=== PATIENT | female | born 1945 | race Two or more races ===

== ENCOUNTER 2025-06-03 10:02 | Emergency (ER) | payer OTHER ==
[~2025-06-03] VITALS: Ht 167.6 cm; Wt 60.0 kg
--- NOTE | 2025-06-03 10:43 | ED.PDOC ---
GI ASSESSMENT HPI Comments 80 y/o F, presents to the ED for CC of abdominal pain. Patient states, she has been experiencing intermittent RUQ abdominal pain that radiates to her right flank onset, x3days ago. Patient relays, associated symptoms of nausea and vomiting. Patient comments, that she did go to urgent Care for symptoms however, was told to follow up with the ED as they do not do Cat Scans. Patient denies dysuria, fever, back pain, or urinary frequency. No other associated symptoms, modifiers, recent injuries or sick contacts present at this time. Chief Complaint: Abdominal Pain Time Seen by MD: 10:30 Allergies: Coded Allergies: Terbinafine (Verified Allergy, Severe, 06/03/25) Mode of Arrival: Ambulatory Timing: Days Duration: Intermittent Prehospital treatment: None Quality: None Vomitus: Watery Stool: Normal Severity: Moderate Recent: None Recent Hx of: None Pain Location: RUQ Modifying Factors: Nothing Associated sign and symptoms: Nausea, Vomiting, Abdominal Pain Past Medical History PAST MEDICAL HISTORY: Cancer Surgical History: Hysterectomy PROCESSING LEAD History: Denies all PROCESSING LEAD Hx Family History Family History: Unknown Social History Smoker: Non-Smoker Alcohol: Denies ETOH Use Drugs: Denies Drug Use Lives In: Home Constitutional: denies: chills, diaphoresis, fatigue, fever, malaise, sweats, weakness, others EENTM: denies: blurred vision, double vision, ear bleeding, ear discharge, ear drainage, ear pain, ear ringing, eye pain, eye redness, hearing loss, mouth pain, mouth swelling, nasal discharge, nose bleeding, nose congestion, nose pain, photophobia, tearing, throat pain, throat swelling, voice changes, others Respiratory: denies: cough, hemoptysis, orthopnea, SOB at rest, shortness of breath, SOB with excertion, stridor, wheezing, others Cardiovascular: denies: chest pain, dizzy spells, diaphoresis, Dyspnea on exertion, edema, irregular heart beat, left arm pain, lightheadedness, palpitations, PND, syncope, others Gastrointestinal: reports: abdominal pain, nausea, vomiting; denies: abdomen distended, blood streaked bowels, constipated, diarrhea, dysphagia, difficulty swallowing, hematemesis, melena, poor appetite, poor fluid intake, rectal bleeding, rectal pain, others Genitourinary: denies: abnormal vagina bleeding, burning, dyspareunia, dysuria, flank pain, frequency, hematuria, incontinence, pain, , vagina discharge, urgency, others Neurological: denies: dizziness, fainting, headache, left sided numbness, left sided weakness, numbness, paresthesia, pre-existing deficit, right sided numbness, right sided weakness, seizure, speech problems, tingling, tremors, weakness, others Musculoskeletal: denies: back pain, gout, joint pain, joint swelling, muscle pain, muscle stiffness, neck pain, others Integumetry: denies: bruises, change in color, change in hair/nails, dryness, laceration, lesions, lumps, rash, wounds, others Allergic/Immunocompromised: denies: Difficulty Healing, Frequent Infections, Hives, Itching, others Hematologic/Lymphatic: denies: anemia, blood clots, easy bleeding, easy bruising, swollen glands, others Endocrine: denies: excessive hunger, excessive sweating, excessive thirst, excessive urination, flushing, intolerance to cold, intolerance to heat, unexplained weight gain, unexplained weight loss, others Psychiatric: denies: anxiety, bipolar disorder, depression, hopeless, panic disorder, schizophrenia, sleepless, suicidal, others All Other Systems: Reviewed and Negative Physical Exam General Appearance: Moderate Distress HEENT: Normal ENT Inspection, Pharynx Normal, TMs Normal Neck: Full Range of Motion, Non-Tender, Normal, Normal Inspection Respiratory: Chest Non-Tender, Lungs Clear, No Accessory Muscle Use, No Respiratory Distress, Normal Breath Sounds Cardiovascular: No Edema, No JVD, No Murmur, No Gallop, Normal Peripheral Pulses, Regular Rate/Rhythm Breast Exam: Deferred Gastrointestinal: No Organomegaly, Non Tender, No Pulsatile Mass, Normal Bowel Sounds, Soft Genitalia: Deferred Pelvic: Deferred Rectal: Deferred Extremities: No calf tenderness, Normal capillary refill, Normal inspection, Normal range of motion, Non-tender, No pedal edema Musculoskeletal : Apperance: Normal Neurologic: Alert, senior research scientist II-XII nml as Tested, No Motor Deficits, Normal Affect, Normal Mood, No Sensory Deficits Cerebellar Function: Normal Reflexes: Normal Skin: Dry, Normal Color, Warm Peripheral Pulses: 3+ Radial (R), 3+ Radial (L) Lymphatic: No Adenopathy Was a procedure done? Was a procedure done?: No GI differential Dx Differential Diagnosis: Cholecystitis, Diverticular disease, Esophagitis, Gastritis/PUD, Gastroenteritis, Hepatitis, Pancreatitis, Urinary Obstruction X-Ray, Labs, Meds, VS Vital Signs Date Time Temp Pulse Resp B/P (MAP) Pulse Ox O2 Delivery O2 Flow Rate FiO2 06/03/25 11:13 62 17 99 Room Air 06/03/25 11:13 98.3 62 16 135/61 (85) 99 98.3 06/03/25 10:18 98.1 71 16 133/91 (105) 98 98.1 Lab Test 06/03/25 10:44 06/03/25 10:30 Range/Units White Blood Count 3.7 L 4.4-10.8 10^3/uL Red Blood Count 4.41 4.0-5.20 10^6/uL Hemoglobin 13.3 12.2-16.2 g/dL Hematocrit 39.0 36.0-46.0 % Mean Corpuscular Volume 88.5 80.0-100.0 fL Mean Corpuscular Hemoglobin 30.2 28.0-32.0 pg Mean Corpuscular Hemoglobin Concent 34.1 32.0-36.0 g/dL Red Cell Distribution Width 16.4 H 11.8-14.3 % Platelet Count 230 140-450 10^3/uL Mean Platelet Volume 7.5 6.9-10.8 fL Neutrophils (%) (Auto) 50.7 37.0-80.0 % Lymphocytes (%) (Auto) 29.8 10.0-50.0 % Monocytes (%) (Auto) 10.3 0.0-12.0 % Eosinophils (%) (Auto) 7.2 H 0.0-7.0 % Basophils (%) (Auto) 2.0 0.0-2.0 % Neutrophils # (Auto) 1.9 1.6-8.6 10 ^3/uL Lymphocytes # (Auto) 1.1 0.4-5.4 10 ^3/uL Monocytes # (Auto) 0.4 0-1.3 10 ^3/uL Eosinophils # (Auto) 0.3 0-0.8 10 ^3/uL Basophils # (Auto) 0.1 0-0.2 10 ^3/uL Nucleated Red Blood Cells 0.1 % Sodium Level 137 136-145 mmol/L Potassium Level 3.9 3.5-5.1 mmol/L Chloride Level 99 98-107 mmol/L Carbon Dioxide Level 29 20-31 mmol/L Anion Gap 9 5-15 Blood Urea Nitrogen 17 9-23 mg/dL Creatinine 0.81 0.550-1.02 mg/dL Glomerular Filtration Rate Calc 74 >90 mL/min BUN/Creatinine Ratio 21.0 H 10.0-20.0 Serum Glucose 121 H 74-106 mg/dL Calcium Level 10.1 8.7-10.4 mg/dL Urine Color Light-yellow Yellow Urine Clarity Clear Clear Urine pH 6.0 5.0-9.0 Urine Specific [place] 1.006 1.001-1.035 Urine Protein Negative Negative Urine Ketones Negative Negative Urine Blood Negative Negative /uL Urine Nitrite Negative Negative Urine Bilirubin Negative Negative Urine Urobilinogen Normal Negative mg/dL Urine Leukocyte Esterase Negative Negative /uL Urine RBC <1 0 - 4 /hpf Urine Microscopic WBC 0-5 /HPF Urine Squamous Epithelial Cells None seen <5 /hpf Urine Bacteria None seen None Seen /hpf Urine Glucose Normal Normal mg/dL Patient alert. Complaining of the abdominal discomfort. Vitals stable. Possible gallstones. Blood pressure slightly high. Ultrasound does reveal gallstones. Abdomen on examination is benign. States that she isn't having any pain. Explained to the family. Insists on going home. Was told to follow up with her primary care physician. Told to come back if there is any problem. [place] [id number] Ph: [phone] DIAGNOSTIC IMAGING Diagnostic Imaging Report : [id number] Signed PATIENT: PATRICIA MELCHOR ACCT: [id number] UNIT: [id number] : 1945 LOC: ER ROOM / BED: / AGE / SEX: 80 / F ADM STATUS: REG ER SERVICE [id number] ORDERING PHYSICIAN: JUSTINA GREWAL MD PROCEDURE(s): GBUS - GALLBLADDER REASON: gallstone ORDER NUMBER(s): [id number], ACCESSION NUMBER(s): [id number] ABDOMINAL ULTRASOUND CLINICAL HISTORY: gallstone TECHNIQUE: Multiple grayscale and color Doppler ultrasound images were obtained of the abdomen. WID: COMPARISON: None FINDINGS: Liver and Biliary System: Homogeneous echotexture, normal size measuring 12 cm. No focal hepatic observations. No intrahepatic bile duct dilatation. The common duct measures 1 cm at the jami hepatis. The gallbladder contains cholelithiasis without wall thickening. Sonographic domingo's sign is negative.. Pancreas: Visualized portions are unremarkable. Kidneys: The right kidney is 9.5 cm . No hydronephrosis, increased echogenicity, shadowing stone, or focal lesion. IMPRESSION: Dilated common bile duct. No choledocholithiasis in the visualized portions of the common bile duct. If there is clinical concern for biliary obstruction, MRCP could be pursued for further evaluation. Cholelithiasis without acute cholecystitis ATED BY: MILE RUIZ MD DICTATED DATE/TIME: 06/03/25 1302 SIGNED BY: MILE RUIZ MD SIGNED DATE/TIME: 06/03/25 1302 CC: Time of 1ST Reevaluation: 11:00 Reevaluation 1ST: Improved Time of 2ND Reevaluation: 13:44 Reevaluation 2ND: Improved Patient Education/Counseling: Diagnosis, Treatment Family Education/Counseling: No Family Present SEPSIS Sepsis Screen Date sepsis recognized/suspect: Jun 03, 2025 Time Sepsis recognized/suspect: 1002 Recent Procedure: No On Antibiotic Therapy: No Respiratory Rate >20: No Heart Rate >90: No Temp<36 C (96.8 F) or >38.3 C: No SBP <90 or MAP <65 mmHG: No New Acute Mental Status Change: No Is the patient on CPAP, BIPAP,: No Physician Orders Electrocardigram (06/03/25 10:24) Gallbladder (06/03/25 10:33) Vital Signs Date Time Temp Pulse Resp B/P (MAP) Pulse Ox O2 Delivery O2 Flow Rate FiO2 06/03/25 11:13 62 17 99 Room Air 06/03/25 11:13 98.3 62 16 135/61 (85) 99 98.3 06/03/25 10:18 98.1 71 16 133/91 (105) 98 98.1 Laboratory Tests Test 06/03/25 10:44 White Blood Count 3.7 10^3/uL (4.4-10.8) L Departure 1 Departure Time of Disposition: 12:05 Impression: Primary Impression: Acute abdominal pain Additional Impression: Gallstones Disposition: HOME / SELF CARE / HOMELESS Condition: Good Discharged With: Self Critical Care Note Critical Care Time?: No Stability Stability form required: No Heart Score Heart Score: Heart Score Response (Comments) Value History N/A 0 EKG N/A 0 Age N/A 0 Risk Factors N/A 0 Troponin N/A 0 Total 0 I personally scribed for JUSTINA GREWAL MD ([email or web address]) on 06/03/25 at 10:43. Electronically submitted by Tracie Lott ([email or web address]). I personally scribed for JUSTINA GREWAL MD ([email or web address]) on 06/03/25 at 13:27. Electronically submitted by Tracie Lott [email or web address]). JUSTINA GREWAL MD Jun 03, 2025 10:43
[2025-06-03 10:59] LABS: Hematocrit 39.0 % (36.0-46.0); Hemoglobin 13.3 g/dL (12.2-16.2); Mean Corpuscular Hemoglobin 30.2 pg (28.0-32.0); Mean Corpuscular Volume 88.5 fL (80.0-100.0); Nucleated Red Blood Cells % 0.1 %
[2025-06-03 11:08] LABS: Chloride 99 mmol/L (98-107); Potassium 3.9 mmol/L (3.5-5.1); Sodium 137 mmol/L (136-145)
[2025-06-03 11:09] LABS: Anion Gap 9 (5-15); Carbon Dioxide 29 mmol/L (20-31)
[2025-06-03 11:10] LABS: Calcium 10.1 mg/dL (8.7-10.4)
[2025-06-03 11:14] LABS: BUN/Creatinine Ratio 21.0 (10.0-20.0); Blood Urea Nitrogen 17 mg/dL (9-23)
[2025-06-03 11:16] LABS: Glucose 121 mg/dL (74-106)
[2025-06-03 11:22] LABS: Urine Protein, UAD Negative (Negative)
--- NOTE | 2025-06-03 13:04 | DVH ---
ABDOMINAL ULTRASOUND CLINICAL HISTORY: gallstone TECHNIQUE: Multiple grayscale and color Doppler ultrasound images were obtained of the abdomen. WID: COMPARISON: None FINDINGS: Liver and Biliary System: Homogeneous echotexture, normal size measuring 12 cm. No focal hepatic o bservations. No intrahepatic bile duct dilatation. The common duct measures 1 cm at the jami hepat is. The gallbladder contains cholelithiasis without wall thickening. Sonographic domingo's sign is negative.. Pancreas: Visualized portions are unremarkable. Kidneys: The right kidney is 9.5 cm . No hydronephrosis, increased echogenicity, shadowing stone, o r focal lesion. IMPRESSION: Dilated common bile duct. No choledocholithiasis in the visualized portions of the common bile duct. If there is clinical concern for biliary obstruction, MRCP could be pursued for further evaluation. Cholelithiasis without acute cholecystitis
[2025-06-03 13:53] VITALS: BP 124/62; PULSE 64; RESP 16; TEMP 98.7; O2SAT 96
== END 2025-06-03 14:02 | disposition home or self-care (01) ==
LOC: ER 10:02
DX: K80.20 Calculus of gallbladder without cholecystitis without obstruction (principal); R10.11 Right upper quadrant pain; Z90.710 Acquired absence of both cervix and uterus; Z85.9 Personal history of malignant neoplasm, unspecified; Z91.09 Other allergy status, other than to drugs and biological substances
CPT/HCPCS: 36415; 76705; 80048; 81001; 85025